=== PATIENT | female | born 1955 | race American Indian/Alaskan Native ===

== ENCOUNTER 2017-02-15 12:46 | Outpatient (CLI) | payer MEDICAID ==
--- NOTE | 2017-02-16 11:29 | Ultrasound Report ---
Pelvic and transvaginal sonography: History: Fibroid uterus. Findings: Uterus measures 12.2 x 8.3 x 10.1 cm. Endometrium not visualized. Single large fibroid noted at the anterior aspect of the body of the uterus measures 5.3 x 5 x 4.1 cm. Fibroid in the fundus measures 3.3 x 3.7 x 2 cm. Fibroid at the posterior aspect of the body measures 4.4 x 4.4 x 4.7 cm. Fibroids are calcified. Right ovary 8.5 x 5 x 7.6 cm. Cyst in the right ovary measures 4.7 cm. Second cyst in the right ovary measures 2.9 cm and third measures 2.2 cm. Left ovary measures 4.2 x 3.2 x 3.7 cm. Cyst in the left ovary measures 1.7 cm. Second cyst measures 1.4 cm and the third cyst measures 1.7 cm. No fluid in the cul-de-sac. Impression: Multiple fibroids within the uterus. Multiple simple cysts at right and left ovary.
== END 2017-02-15 12:47 | disposition home or self-care (01) ==
LOC: US 12:46
PROVIDERS: ATTEND Internal Medicine Hematology & Oncology
DX: D25.9 Leiomyoma of uterus, unspecified (principal); N83.201 Unspecified ovarian cyst, right side; N83.202 Unspecified ovarian cyst, left side; I10 Essential (primary) hypertension; D64.9 Anemia, unspecified
CPT/HCPCS: 76830; 76856